=== PATIENT | female | born 1990 | race Caucasian/White ===

== ENCOUNTER 2024-04-07 19:06 | Emergency (ER) | payer BC, OTHER ==
[2024-04-07 19:19] VITALS: BP 106/56; PULSE 103; RESP 19; TEMP 98.8; BMI 26.7
[2024-04-07 21:24] LABS: BASO % 0.4 % (0-2.0); EOS % 7.7 % (0-4.5); HEMATOCRIT 40.7 % (32.4-45.2); HEMOGLOBIN 13.7 GM/dL (10.7-15.3); LYMPH % 15.9 % (8-40); MCH 29.6 pg (25.7-33.7); MCHC 33.6 g/dl (32.0-36.0); MEAN PLT VOLUME 6.9 fl (7.5-11.1); MONO % 9.6 % (3.8-10.2); NEUT % 66.4 % (42.8-82.8); PLATELET COUNT 287 10^3/uL (134-434); RBC 4.62 M/mm3 (3.60-5.2); WHITE BLOOD COUNT 10.3 K/mm3 (4.0-10.0)
[2024-04-07 21:52] LABS: POTASSIUM 3.5 mmol/L (3.5-5.1)
[2024-04-07 21:54] LABS: CALCIUM 9.4 mg/dL (8.5-10.1)
[2024-04-07 21:55] LABS: ALBUMIN 3.6 g/dl (3.4-5.0); BLOOD UREA NITROGEN 12.8 mg/dL (7-18)
[2024-04-07 21:58] LABS: CREATININE 0.6 mg/dL (0.55-1.3)
[2024-04-07 21:59] LABS: BILIRUBIN,TOTAL 0.8 mg/dL (0.2-1); TOT PROT 7.3 g/dl (6.4-8.2)
[2024-04-07 23:15] LABS: HIV INTERPRETATION NEGATIVE (NEGATIVE)
== END 2024-04-07 22:58 | disposition home or self-care (01) ==
LOC: JER 19:06
DX: S16.1XXA Strain of muscle, fascia and tendon at neck level, initial encounter (principal); R74.8 Abnormal levels of other serum enzymes; R07.9 Chest pain, unspecified; X58.XXXA Exposure to other specified factors, initial encounter
CPT/HCPCS: 36415; 71046-TC-FY; 80053; 83690; 84484; 84703; 85025; 86803; 87389; 93005; 93010; 99285-25

== ENCOUNTER 2024-05-09 05:35 | Day surgery (SDC) | payer BC, OTHER ==
[2024-04-30 14:07] VITALS: BMI 25.7
[2024-05-09 12:44] VITALS: TEMP 98
[2024-05-09 14:00] VITALS: BP 97/54; PULSE 82; RESP 16
== END 2024-05-09 14:05 | disposition home or self-care (01) ==
LOC: JASU-ENDO 05:35
PROVIDERS: ATTEND Internal Medicine Gastroenterology
PROC: 0DB68ZX Excision of Stomach, Via Natural or Artificial Opening Endoscopic, Diagnostic (ICD-10-PCS; principal; 2024-05-09 12:00)
DX: K86.2 Cyst of pancreas (principal); K29.50 Unspecified chronic gastritis without bleeding
CPT/HCPCS: 81025; 88305-TC